=== PATIENT | female | born 1955 | race Caucasian/White ===

== ENCOUNTER 2021-09-18 11:54 | Outpatient (CLI) | payer MEDICARE, SELFPAY ==
[2021-09-18 12:38] LABS: Anion Gap 15.5 (5-19); Blood Urea Nitrogen 13 mg/dL (8-23); Carbon Dioxide 24 mmol/L (22-29); Chloride 103 mmol/L (98-107); Glomerular Filtration Rate 99.7 mL/min (90-130); Glucose 115 mg/dL (65-115); Osmolality Calculated 287 mOsm/kg (285-295); Potassium 4.5 mmol/L (3.5-5.1); Sodium 138 mmol/L (136-145)
== END 2021-09-18 11:55 | disposition home or self-care (01) ==
LOC: LAB 12:02
PROVIDERS: PCP Family Medicine; Visit Provider Internal Medicine Nephrology
DX: I10 Essential (primary) hypertension (principal)
CPT/HCPCS: 36415; 80048

== ENCOUNTER 2023-05-12 11:52 | Outpatient (CLI) | payer MEDICARE, SELFPAY ==
[2023-05-12 13:19] LABS: Anion Gap 15.8 (5-19); Blood Urea Nitrogen 13 mg/dL (8-23); Calcium 9.6 mg/dL (8.5-10.5); Carbon Dioxide 23 mmol/L (22-29); Chloride 104 mmol/L (98-107); Glomerular Filtration Rate 99.1 mL/min (90-130); Glucose 114 mg/dL (65-115); Osmolality Calculated 289 mOsm/kg (285-295); Potassium 3.8 mmol/L (3.5-5.1); Sodium 139 mmol/L (136-145)
== END 2023-05-12 11:53 | disposition home or self-care (01) ==
LOC: LAB 11:54
PROVIDERS: PCP Family Medicine; Visit Provider Internal Medicine Nephrology
DX: I10 Essential (primary) hypertension (principal)
CPT/HCPCS: 80048

== ENCOUNTER → 2023-05-22 12:08 | Outpatient (BNVA) | payer MEDICARE, SELFPAY | PROVIDERS: PCP Family Medicine; Visit Provider Clinical Nurse Specialist Adult Health | DX: J06.9 Acute upper respiratory infection, unspecified (principal) | CPT/HCPCS: 87400; 87420; 87426 ==

== ENCOUNTER → 2023-06-09 13:34 | Outpatient (BNVA) | payer MEDICARE, SELFPAY | PROVIDERS: PCP Family Medicine; Visit Provider Family Medicine | DX: E53.8 Deficiency of other specified B group vitamins (principal); E03.9 Hypothyroidism, unspecified; I10 Essential (primary) hypertension; Z13.220 Encounter for screening for lipoid disorders; E55.9 Vitamin D deficiency, unspecified; Z51.81 Encounter for therapeutic drug level monitoring | CPT/HCPCS: 80053; 80061; 82306; 82607; 83036; 84439; 84443; 85025 ==

== ENCOUNTER → 2023-06-23 10:58 | Outpatient (BNVA) | payer MEDICARE, OTHER, SELFPAY | PROVIDERS: PCP Family Medicine; Visit Provider Podiatrist Foot & Ankle Surgery | DX: L60.3 Nail dystrophy (principal); G62.9 Polyneuropathy, unspecified; L84 Corns and callosities; E11.42 Type 2 diabetes mellitus with diabetic polyneuropathy | CPT/HCPCS: 11721; 99203 ==

== ENCOUNTER → 2023-08-31 08:46 | Outpatient (BNVA) | payer MEDICARE, OTHER, SELFPAY | PROVIDERS: PCP Family Medicine; Visit Provider Podiatrist Foot & Ankle Surgery | DX: L60.3 Nail dystrophy (principal); G62.9 Polyneuropathy, unspecified; L84 Corns and callosities; E11.42 Type 2 diabetes mellitus with diabetic polyneuropathy | CPT/HCPCS: 11056; 11721 ==

== ENCOUNTER → 2023-11-02 08:51 | Outpatient (BNVA) | payer MEDICARE, OTHER, SELFPAY | PROVIDERS: PCP Family Medicine; Visit Provider Podiatrist Foot & Ankle Surgery | DX: L84 Corns and callosities (principal); L60.3 Nail dystrophy; G62.9 Polyneuropathy, unspecified; E11.42 Type 2 diabetes mellitus with diabetic polyneuropathy | CPT/HCPCS: 11056 ==

== ENCOUNTER → 2024-06-14 11:13 | Outpatient (BNVA) | payer MEDICARE, OTHER, SELFPAY | PROVIDERS: PCP Family Medicine; Visit Provider Family Medicine | DX: Z13.220 Encounter for screening for lipoid disorders (principal); E78.5 Hyperlipidemia, unspecified; R53.81 Other malaise; E55.9 Vitamin D deficiency, unspecified; R53.83 Other fatigue; E53.8 Deficiency of other specified B group vitamins; Z51.81 Encounter for therapeutic drug level monitoring | CPT/HCPCS: 80053; 80061; 82306; 82607; 83036; 83735; 84255; 84443; 85025 ==

== ENCOUNTER 2024-07-31 16:13 | Emergency (ER) | payer MEDICARE, OTHER, SELFPAY ==
[2024-07-31 16:22] VITALS: BP 188/103; PULSE 60; RESP 16; TEMP 36.4; O2SAT 94; BMI 30.7
[2024-07-31 17:00] VITALS: O2SAT 95
--- NOTE | 2024-07-31 17:02 | W.ED.COVID ---
HPI - COVID General: Chief Complaint: COVID symptoms Stated Complaint: cough, congestion Time Seen by Provider: 07/31/24 16:35 History of Present Illness: 69-year-old female presents with some generalized malaise not feeling well. Patient reports that she was traveling yesterday and started feeling kind of malaise and bad mild cough. Came home and took a COVID test that was positive and then took a second COVID test that was positive. She presents because of her concerns with her chronic medical conditions. She denies any shortness of breath or other systemic complaints at this time. COVID 19 common symptoms: positive chills, fatigue and body aches; negative dyspnea, nausea or vomiting COVID 19 other sytmptoms: negative chest pain COVID Results: SARS-CoV-2 Ag (Rapid) negative (Negative) 05/22/23 12:08 05/22/23 Related Data Home Medications ?Medication ?Instructions ?Recorded ?Confirmed aspirin 81 mg tablet,delayed 81 mg PO DAILY 01/27/22 06/13/24 release coenzyme Q10 100 mg capsule 100 mg PO BID 06/09/23 06/13/24 captopril 25 mg tablet 25 mg PO TID 06/13/24 06/13/24 Previous Rx's ?Medication ?Instructions ?Recorded RSV vaccine #1 ea 05/11/23 blood-glucose meter (OneTouch #1 ea 05/18/23 Ultra2 Meter) lancets 33 gauge (OneTouch Delica #100 ea 05/18/23 Plus Lancet) diabetic shoes with 3 inserts #1 ea 06/23/23 blood sugar diagnostic (OneTouch #100 strips 05/23/24 Ultra Test strips) rosuvastatin 10 mg tablet 10 mg PO DAILY #90 tabs 06/13/24 carvedilol phosphate 40 mg 40 mg PO DAILY #90 caps 06/15/24 capsule,[id number] multiphase Allergies Allergy/AdvReac Type Severity Reaction Status Date / Time iodine Allergy Severe ALGY-Hives Verified 11/23/23 09:38 meperidine (From Demerol) Allergy Intermediate ALGY-Difficulty Verified 11/23/23 09:38 Breathing ramipril Allergy Mild ADR-Confusi Verified 11/23/23 09:38 on chlorthalidone Allergy Unknown Verified 07/31/24 16:27 clindamycin Allergy Unknown Verified 07/31/24 16:27 Iodinated Contrast Media Allergy Unknown Verified 07/31/24 16:27 latex Allergy Unknown Verified 07/31/24 16:27 levofloxacin Allergy Unknown Verified 07/31/24 16:27 oxycodone Allergy Unknown Verified 07/31/24 16:27 propofol Allergy Unknown Verified 07/31/24 16:27 sulfacetamide (From Allergy Unknown Verified 07/31/24 16:27 Sulfamide) zomepirac Allergy Unknown Verified 07/31/24 16:27 anaesthetic Allergy Mild Unknown Uncoded 11/23/23 09:38 Review of Systems Const: Reports: chills, body aches and fatigue Card: Denies: chest pain Resp: Denies: dyspnea GI: Denies: abdominal pain, nausea or vomiting PFSH ED PFSH: Medical History Hypertrophic cardiomyopathy Noted on CT of heart - Done elsewhere Hx of colonic polyps Last scope done in December, - 5 polyps present. Needs 3 year follow up Surgical History Hx of laminectomy C1/C2 - 2016 History of meningioma of the brain On brainstem - removed 01/09/[address] Kimble at [place] History of eye surgery Retinal detachment of the right eye Social History Smoking and tobacco/nicotine status: never used tobacco/nicotine Physical Exam Const: COMMON NORMALS: no acute distress, patient oriented x3, no limitations and alert Resp: COMMON NORMALS: normal respiratory effort, No use of accessory muscles and clear to auscultation bilaterally AUSCULTATION: clear to auscultation bilaterally Cardio: COMMON NORMALS: regular rate and regular rhythm RATE: regular rate RHYTHM: regular rhythm Neuro: COMMON NORMALS: patient oriented x3, moves all extremities and no focal motor deficits SENSORIUM/ORIENTATION: Yes alert Psych: COMMON NORMALS: Normal thought process present, cooperative and normal affect THOUGHT PROCESS: Normal thought process present Skin: COMMON NORMALS: no rashes or lesions noted GENERAL SKIN EXAM: no rashes or lesions noted Course Vital Signs: Vital signs: Vital Signs Temperature 97.5 F L 07/31/24 16:22 Pulse Rate 60 07/31/24 16:22 Respiratory Rate 16 07/31/24 16:22 Blood Pressure 188/103 07/31/24 16:22 Pulse Oximetry 94 07/31/24 16:22 Oxygen Delivery Me thod Room Air 07/31/24 16:22 MDM - COVID Medical Decision Making Patient with 2 positive home COVID test. She asked if she would need to additional test. I discussed with her that she has had 2 test and they are both positive that very is likely positive. I discussed Paxlovid with risk and benefits with her. She is unsure if she would like it or not so we will prescribe her the Paxlovid and she will decide if she wants to continue to take it. Patient stable and discharged Lab Data SARS-CoV-2 Ag (Rapid) negative (Negative) 05/22/23 12:08 05/22/23 No radiology studies performed this visit Discharge Plan Discharge Condition: Stable Prescriptions: No Action aspirin 81 mg tablet,delayed release (DR/EC) 81 mg PO DAILY (DME) diabetic shoes with 3 inserts See Rx Instructions .Route .MEDSUPPLY Qty: 1 0RF Rx Instructions: As directed to the shoe venkat captopril 25 mg tablet 25 mg PO TID rosuvastatin 10 mg tablet 10 mg PO DAILY Qty: 90 3RF carvedilol phosphate 40 mg capsule, ER multiphase 24 hr 40 mg PO DAILY Qty: 90 3RF Rx Instructions: must administer with a meal/food (DME) RSV vaccine See Rx Instructions .ROUTE .MEDSUPPLY Qty: 1 0RF Rx Instructions: Give one dose IM per guidelines. coenzyme Q10 100 mg capsule 100 mg PO BID (DME) blood-glucose meter [OneTouch Ultra2 Meter] Misc See Rx Instructions .Route Qty: 1 0RF Rx Instructions: As directed (DME) lancets [OneTouch Delica Plus Lancet] 33 gauge misc See Rx Instructions .ROUTE .MEDSUPPLY Qty: 100 12RF Rx Instructions: As directed (DME) OneTouch Ultra Test Strip See Rx Instructions .ROUTE .COMPLEX Qty: 100 6RF Dose Instruction: TEST ONCE DAILY DIRECTED Rx Instructions: TEST ONCE DAILY DIRECTED Referrals: Ellis Jose MD [Primary Care Provider] - Print Language: Vietnamese Coding Level of Care Code ED Taper And Floater for Brigetteg Fwd
[2024-07-31 17:57] VITALS: BP 195/91; PULSE 56; O2SAT 95
== END 2024-07-31 17:57 | disposition home or self-care (01) ==
PROVIDERS: Emergency Provider Student in an Organized Health Care Education/Training Program; PCP Family Medicine
DX: Z53.21 Procedure and treatment not carried out due to patient leaving prior to being seen by health care provider (principal); Z79.82 Long term (current) use of aspirin
CPT/HCPCS: 99283

== ENCOUNTER → 2024-09-13 10:21 | Outpatient (BNVA) | payer MEDICARE, OTHER, SELFPAY | PROVIDERS: PCP Family Medicine; Visit Provider Family Medicine | DX: I10 Essential (primary) hypertension (principal); E11.9 Type 2 diabetes mellitus without complications; E55.9 Vitamin D deficiency, unspecified; Z51.81 Encounter for therapeutic drug level monitoring | CPT/HCPCS: 80053; 82306; 83036; 83695; 85025 ==

== ENCOUNTER → 2024-10-11 14:22 | Outpatient (BNVA) | payer MEDICARE, OTHER, SELFPAY | PROVIDERS: PCP Family Medicine; Visit Provider Podiatrist Foot & Ankle Surgery | DX: M79.672 Pain in left foot (principal); E11.42 Type 2 diabetes mellitus with diabetic polyneuropathy; L60.3 Nail dystrophy; L84 Corns and callosities; M76.62 Achilles tendinitis, left leg; G62.9 Polyneuropathy, unspecified | CPT/HCPCS: 73630; 99213 ==

== ENCOUNTER 2024-10-28 13:00 | Outpatient (RCR) | payer MEDICARE, OTHER, SELFPAY | END 2024-11-12 23:59 | disposition home or self-care (01) | LOC: SPT 13:00 | PROVIDERS: Visit Provider Podiatrist Foot & Ankle Surgery | DX: M76.62 Achilles tendinitis, left leg (principal) | CPT/HCPCS: 97140; 97161 ==

== ENCOUNTER → 2024-11-23 13:06 | Outpatient (BNVA) | payer MEDICARE, OTHER, SELFPAY | PROVIDERS: PCP Family Medicine; Visit Provider Podiatrist Foot & Ankle Surgery | DX: E11.42 Type 2 diabetes mellitus with diabetic polyneuropathy (principal); L60.3 Nail dystrophy; L84 Corns and callosities; M76.62 Achilles tendinitis, left leg; G62.9 Polyneuropathy, unspecified | CPT/HCPCS: 99213 ==

== ENCOUNTER → 2025-06-07 11:35 | Outpatient (BNVA) | payer MEDICARE, OTHER, SELFPAY | PROVIDERS: PCP Family Medicine; Visit Provider Family Medicine | DX: Z00.00 Encounter for general adult medical examination without abnormal findings (principal); E53.8 Deficiency of other specified B group vitamins; R53.81 Other malaise; R53.83 Other fatigue; R30.0 Dysuria; Z13.6 Encounter for screening for cardiovascular disorders; R73.03 Prediabetes; D75.89 Other specified diseases of blood and blood-forming organs; Z51.81 Encounter for therapeutic drug level monitoring; E55.9 Vitamin D deficiency, unspecified | CPT/HCPCS: 80053; 80061; 81000; 82306; 82607; 82746; 83036; 84439; 84443; 85025; 87086 ==